=== PATIENT | female | born 1995 | race Caucasian/White ===

== ENCOUNTER 2017-05-19 00:19 | Emergency (ER) | payer OTHER ==
[~2017-05-19] VITALS: Ht 162.6 cm; Wt 67.0 kg
[~2017-05-19 00:19] MED LIST: ACET500C5 PO; ACYC800T57 PO; HYDR-3010 PO; HYDR-3498 PO; IBUP-1542 PO; NITR-58 PO; PHEN-537 PO
[2017-05-19 00:25] VITALS: Ht 162.6 cm; Wt 67.0 kg
--- NOTE | 2017-05-19 03:16 | ERD ---
ER Documentation Chief Complaint Date/Time DATE: 05/19/17 TIME: 03:13 Chief Complaint vaginal itching HPI This 21-year-old female presents to emergency department for treatment of HSV breakout patient reports that she is not on continuous medication, she did not understand that herpes simplex was a chronic condition that would need to be treated intermittently for the rest of her life. Patient states she has told her partner that she has HSV and they do use barrier method. ROS All systems reviewed and are negative except as per history of present illness. Medications Home Meds Active Scripts Ibuprofen* (Motrin*) 600 Mg Tab, 600 MG PO Q6, #20 TAB Prov:BRANDY BATRES PA-C 01/25/16 Hydroxyzine Hcl* (Hydroxyzine Hcl*) 10 Mg Tablet, 10 MG PO Q6H Y for ITCHING, # 15 TAB Prov:BRANDY BATRES PA-C 01/25/16 Acetaminophen* (Tylophen*) 500 Mg Capsule, 1 CAP PO Q4 Y for PAIN AND OR ELEVATED TEMP, #30 CAP Prov:DEVYN SOLIS PA-C 11/19/15 Ibuprofen* (Motrin*) 600 Mg Tab, 600 MG PO Q6, #30 TAB Prov:RADHA SNELL PA-C 10/29/15 Ibuprofen* (Motrin*) 600 Mg Tab, 600 MG PO Q8, #30 Prov:VERONICA CRUM DO 06/19/15 Hydrocodone Bit-Acetaminophen* ([place]*) 5-325 Mg Tab, 1 TAB PO Q6 Y for PAIN, # 15 TAB Prov:VERONICA CRUM DO 06/19/15 Phenazopyridine Hcl* (Pyridium*) 100 Mg Tab, 100 MG PO TID Y for BLADDER SPASMS , #8 TAB Prov:KAREL LORENZO 03/15/15 Nitrofurantoin Monohyd Macrocr* (Macrobid*) 100 Mg Capsr, 100 MG PO HS for 7 Days Prov:KAREL LORENZO 03/15/15 Acyclovir* (Zovirax*) 800 Mg Tablet, 400 MG PO TID for 10 Days, TAB Prov:KAREL LORENZO 03/15/15 Allergies Allergies: Coded Allergies: No Known Allergy (Unverified , 01/16/14) PMhx/Soc History of Surgery: No Anesthesia Reaction: No Hx Neurological Disorder: No Hx Respiratory Disorders: No Hx Cardiac Disorders: No Hx Psychiatric Problems: No Hx Miscellaneous Medical Probl: No Hx Alcohol Use: No Hx Substance Use: No Hx Tobacco Use: No Physical Exam Vitals Vital Signs Date Time Temp Pulse Resp B/P Pulse Ox O2 Delivery O2 Flow Rate FiO2 05/19/17 00:25 97.6 98 20 144/64 100 Vitals stable, triage notes reviewed Physical Exam Const: Well-nourished well-hydrated well-appearing no acute distress Head: Eyes: ENT: Neck: Resp: Respirations even and unlabored no respiratory distress Cardio: Pelvic Exam: Deferred Abdomen: Soft nontender nondistended Neur: Awake and alert Psych: Normal Mood and Affect Results 24 hrs Urinalysis negative Laboratory Tests Test 05/19/17 03:58 Bedside Urine pH (LAB) 7.0 Bedside Urine Protein (LAB) 1+ Bedside Urine Glucose (UA) Negative Bedside Urine Ketones (LAB) Negative Bedside Urine Blood Negative Bedside Urine Nitrite (LAB) Negative Bedside Urine Leukocyte Esterase (L Negative Urinalysis negative for evidence of infection, no leukocytosis nitrates or microscopic hematuria Procedures/MDM This pleasant 21-year-old female presents to emergency department today for treatment of herpes simplex virus 2. Patient has history of HSV, denies that she has any medication to use her that she has the understanding that the herpes could come back. Teaching provided at this point that herpes was a chronic condition that would require continuous treatment. Patient did report she has a partner the use barrier methods and she has told him that she has the virus. I have little suspicion for pyelonephritis, Bartholin's cyst, or . Patient treatment includes urinalysis; negative for evidence of infection, no leukocytosis, nitrates or microscopic hematuria, urine hCG negative for evidence of . Patient will be discharged with acyclovir, Motrin, and teaching handout instructed to follow-up with primary care educational assistant teacher for a full active treatment of HSV. Patient is stable with no new complaints during ER course, clinically there is no current evidence to suggest meningitis, sepsis, acute abdomen, acute coronary syndromes, pulmonary embolism or any other emergent condition appearing to require further evaluation or hospitalization. I feel the patient is stable for discharge at this time. I have discussed results, examination findings, the treatment plan with the patient and family present prior to discharge. Indications for emergent reevaluation, side effects of medication were also discussed. All questions were answered. Patient verbalizes understanding and agrees with plan of care. Departure Diagnosis: Primary Impression: HSV infection Condition: Good Patient Instructions: Herpes Genitalis, Hsv: Type Ii Referrals: MANUSCRIPTS CURATOR REFERRAL LIST Additional Instructions: Thank you for for coming to [facility] for your care today. Please ask your nurse or provider if you have questions about your care today and do not leave until all your questions have been answered. Please use any medications given as directed and follow-up with your doctor (or the doctor you were referred to) in the next 2-3 days. If you do not have a primary care doctor you may follow up at the [facility] (listed below). You may also use motrin and tylenol as needed for fever and/or pain unless instructed otherwise by your provider or nurse. Indications for more urgent follow-up have been discussed, but you may return to the Emergency Department at ANY time for any worrisome or worsening symptoms. If you have abdominal pain, please know that no test or exam you received is perfect and you should follow up within 8 hours for continued pain. If you had any imaging studies today, such as an X-Ray or CT Scan, these studies will be reviewed later by a radiologist. You will be called if there are important findings that were not identified today, so make sure the contact information you provided at registration is correct. If you received any narcotic pain control medicine today, such as Vicodin, Morphine or Dilaudid, your coordination and judgment may be affected for a number of hours. Please do not drive or operate heavy machinery, and you may want someone to assist you at home. If you were given a prescription for narcotic medication, be aware that it is very addictive- use sparingly and only if necessary. MILLI YADAV May 19, 2017 03:11
[2017-05-19 03:53] LABS: URINE BLOOD (Dip) POC Negative (NEGATIVE)
[2017-05-19] MEDS ORDERED: ACYC800T57 PO (04:21)
[2017-05-19] MEDS ORDERED: IBUP400T22 PO (04:21)
== END 2017-05-19 04:34 | disposition home or self-care (01) ==
LOC: FTE 00:19
DX: B00.9 Herpesviral infection, unspecified (principal)
CPT/HCPCS: 81003; Z7502; 99283

== ENCOUNTER 2017-11-14 12:51 | Emergency (ER) | END 2017-11-14 14:17 | disposition home or self-care (01) ==

== ENCOUNTER 2018-03-05 06:45 | Inpatient (IN) | END 2018-03-08 22:30 | disposition home or self-care (01) | DRG 781 ==

== ENCOUNTER 2019-02-04 15:25 | Emergency (ER) | payer OTHER ==
[~2019-02-04] VITALS: Ht 160 cm; Wt 87.5 kg
[~2019-02-04 15:25] MED LIST changes: -ACET500C5 PO; -ACYC800T57 PO; +FERR134T PO; -HYDR-3010 PO; -HYDR-3498 PO; -IBUP-1542 PO; +LABE100T7 PO; -NITR-58 PO; -PHEN-537 PO; +PREN-19 PO
[2019-02-04 15:49] VITALS: BP 133/75; PULSE 68; RESP 18; Ht 160 cm; Wt 87.5 kg
[2019-02-04] MEDS ORDERED: AMOX500C2 PO (19:47)
--- NOTE | 2019-02-04 19:55 | ERD ---
ER Documentation Chief Complaint Chief Complaint lump at site since yesterday ( 9 months ago) HPI 23-year-old female with no reported past medical surgical history, status post 9 months ago who presents with complaint of pain, swelling, erythema at site of scar. Patient states this began yesterday when she noticed a bump along scar. Has had pain, redness at the site. She otherwise denies fever, chills, nausea, abdominal pain, vomiting, diarrhea, urinary symptoms such as burning or itching, frequency. She has not seen her ACTIVITIES COUNSELOR for this issue. She currently is on Depo shot for prevention. She otherwise is without complaint. States she has not shaved pubic area and has had growth of hair long scar. She denies any allergies to medications. ROS All systems reviewed and are negative except as per history of present illness. Medications Home Meds Active Scripts Amoxicillin* (Amoxicillin*) 500 Mg Cap, 500 MG PO TID for 7 Days, CAP Prov:EMILY SHOEMAKER PA-C 02/04/19 Reported Medications Labetalol Hcl* (Labetalol Hcl*) 100 Mg Tablet, 100 MG PO Q8, TAB 03/08/18 Ferrous Sulfate (Iron) 134 Mg Tablet, 134 MG PO DAILY, TAB 03/05/18 Vit #76/Iron,Carb/FA (Prenatabs Rx Tablet) 1 Each Tablet, 1 EACH PO DAILY, TAB 03/05/18 Allergies Allergies: Coded Allergies: No Known Allergy (Unverified , 03/05/18) PMhx/Soc Medical and Surgical Hx: pt denies Surgical Hx History of Surgery: No () Anesthesia Reaction: No Hx Neurological Disorder: No Hx Respiratory Disorders: No Hx Cardiac Disorders: No Hx Psychiatric Problems: No Hx Miscellaneous Medical Probl: No Hx Alcohol Use: No Hx Substance Use: No Hx Tobacco Use: No Smoking Status: Never smoker Physical Exam Vitals Vital Signs Date Temp Pulse Resp B/P (MAP) Pulse Ox O2 O2 Flow FiO2 Time Delivery Rate 02/04/19 98.4 68 18 133/75 99 15:49 (94) Physical Exam Const: No acute distress Head: Atraumatic Eyes: Normal Conjunctiva ENT: Normal External Ears, Nose and Mouth. Neck: Full range of motion. No meningismus. Resp: Clear to auscultation bilaterally Cardio: Regular rate and rhythm, no murmurs Abd: Soft, non tender, non distended. Normal bowel sounds Skin: Has healed scar, central to that scar small painful, erythematous nodule that is fluctuant and tender to touch. Area with pubic ears with several hairs growing into the area of raised skin and tenderness. Small needle prick made area and 3 pubic hairs removed Back: No midline or flank tenderness Ext: No cyanosis, or edema Neur: Awake and alert Psych: Normal Mood and Affect Results 24 hrs Laboratory Tests Test 02/04/19 19:26 02/04/19 19:29 Urine Color YELLOW Urine Clarity SLIGHTLY CLOUDY Urine pH 7.0 Urine Specific [place] 1.016 Urine Ketones NEGATIVE mg/dL Urine Nitrite NEGATIVE mg/dL Urine Bilirubin NEGATIVE mg/dL Urine Urobilinogen NEGATIVE mg/dL Urine Leukocyte Esterase NEGATIVE Nehemiah/ul Urine Microscopic RBC 1 /HPF Urine Microscopic WBC 1 /HPF Urine Squamous Epithelial Cells FEW /HPF Urine Mucus FEW /HPF Urine Hemoglobin NEGATIVE mg/dL Urine Glucose NEGATIVE mg/dL Urine Total Protein 2+ mg/dl POC Beta HCG, Qualitative NEGATIVE Procedures/MDM 23-year-old female presents with with area of redness and tenderness along he aled scar. Symptoms likely secondary to ingrown hairs. Multiple hairs removed and small needle incision made at site. No discharge noted. Patient with movement and pain. Will discharge with strict return precautions and short course of amoxicillin antibiotic given surrounding cellulitis. This should aid in preventing evolving infection to site. I have low suspicion for any intra-abdominal process warranting further emergent work-up or care. Abdominal exam is reassuring other than noted. DISPOSITION PLAN: We discussed follow up with the patient's primary care doctor within 24 to 48 hours. Patient counseled regarding my diagnostic impression and care plan. Prior to discharge all questions answered. Pt agrees with treatment plan and understan ds strict return precautions. Precautionary instructions provided including instructions to return to the ER if not improving or for any worsening or changing symptoms or concerns. Disclaimer: Inadvertent spelling and grammatical errors are likely due to EHR/dictation software use and do not reflect on the overall quality of patient care. Also, please note that the electronic time recorded on this note does not necessarily reflect the actual time of the patient encounter. Departure Diagnosis: Primary Impression: Cellulitis Additional Impression: Ingrown hair Condition: Stable Patient Instructions: Cellulitis Additional Instructions: Call your primary care doctor TOMORROW for an appointment during the next 2-3 days.See the doctor sooner or return here if your condition worsens before your appointment time. EMILY SHOEMAKER PA-C February 04, 2019 19:55
== END 2019-02-04 20:04 | disposition home or self-care (01) ==
LOC: FTE 15:25
DX: L03.311 Cellulitis of abdominal wall (principal); L73.1 Pseudofolliculitis barbae
CPT/HCPCS: 81001; 81025; Z7502; 99283

== ENCOUNTER 2019-02-22 11:20 | Emergency (ER) | payer OTHER ==
[~2019-02-22] VITALS: Ht 160 cm; Wt 88.1 kg
[~2019-02-22 11:20] MED LIST changes: +AMOX500C2 PO
[2019-02-22 11:30] VITALS: BP 110/65; PULSE 91; RESP 18; Ht 160 cm; Wt 88.1 kg
[2019-02-22] MEDS ORDERED: ONDANSETRON 4 MG INJ IV STA (13:06)
[2019-02-22] MEDS ORDERED: ONDANSETRON (ODT) 4 MG TAB ODT STA (13:42)
[2019-02-22] MEDS ORDERED: IBUPROFEN 600 MG TAB PO ONE (14:00)
[2019-02-22] MEDS ORDERED: IBUP-1542 PO (15:35)
[2019-02-22] MEDS ORDERED: DOCU-144 PO (15:35)
[2019-02-22] MEDS ORDERED: ONDA8TAB14 PO (15:40)
--- NOTE | 2019-02-22 15:42 | ERD ---
ER Documentation Chief Complaint Chief Complaint abdominal pain with nausea since th HPI 23 female presents with lower abdominal presents yesterday. She has nausea without vomiting. She has urinary complaints. She has cough, shortness of breath or chest pain. She is requesting a test that she does not remember her last menstrual period although she did have a tubal ligation 11 months ago. ROS All systems reviewed and are negative except as per history of present illness. Medications Home Meds Active Scripts Ondansetron (Ondansetron Odt) 8 Mg Tab.rapdis, 8 MG PO Q6H PRN for NAUSEA AND/OR VOMITING, #8 TAB Prov:HELLEN CHANEL MD 02/22/19 Docusate Sodium* (Colace*) 100 Mg Capsule, 100 MG PO BID, #15 CAP Prov:HELLEN CHANEL MD 02/22/19 Ibuprofen* (Motrin*) 600 Mg Tab, 600 MG PO Q6, #20 TAB Prov:HELLEN CHANEL MD 02/22/19 Amoxicillin* (Amoxicillin*) 500 Mg Cap, 500 MG PO TID for 7 Days, CAP Prov:EMILY SHOEMAKER PA-C 02/04/19 Reported Medications Labetalol Hcl* (Labetalol Hcl*) 100 Mg Tablet, 100 MG PO Q8, TAB 03/08/18 Ferrous Sulfate (Iron) 134 Mg Tablet, 134 MG PO DAILY, TAB 03/05/18 Vit #76/Iron,Carb/FA (Prenatabs Rx Tablet) 1 Each Tablet, 1 EACH PO DAILY, TAB 03/05/18 Allergies Allergies: Coded Allergies: No Known Allergy (Unverified , 03/05/18) PMhx/Soc History of Surgery: No () Anesthesia Reaction: No Hx Neurological Disorder: No Hx Respiratory Disorders: No Hx Cardiac Disorders: No Hx Psychiatric Problems: No Hx Miscellaneous Medical Probl: No Hx Alcohol Use: No Hx Substance Use: No Hx Tobacco Use: No FmHx Family History: No diabetes, No coronary disease, No other Physical Exam Vitals Vital Signs Date Temp Pulse Resp B/P (MAP) Pulse Ox O2 O2 Flow FiO2 Time Delivery Rate 02/22/19 98.8 91 18 110/65 98 11:30 (80) Physical Exam Const: No acute distress Head: Atraumatic Eyes: Normal Conjunctiva ENT: Normal External Ears, Nose and Mouth. Neck: Full range of motion. No meningismus. Resp: Clear to auscultation bilaterally Cardio: Regular rate and rhythm, no murmurs Abd: Soft, normal lower abdominal tenderness. No tenderness at McBurney's point no Zayas sign and no masses. Non distended. Normal bowel sounds Skin: No petechiae or rashes Back: No midline or flank tenderness Ext: No cyanosis, or edema Neur: Awake and alert Psych: Normal Mood and Affect Result Diagram: 02/22/19 1348 02/22/19 1348 Results 24 hrs Laboratory Tests Test 02/22/19 13:46 02/22/19 13:47 02/22/19 13:48 POC Beta HCG, Qualitative NEGATIVE Bedside Urine pH (LAB) 7.0 Bedside Urine Protein (LAB) 3+ Bedside Urine Glucose (UA) Negative Bedside Urine Ketones (LAB) Negative Bedside Urine Blood Trace-intact Bedside Urine Nitrite (LAB) Negative Bedside Urine Leukocyte Esterase Negative (L White Blood Count 7.4 10^3/ul Red Blood Count 4.91 10^6/ul Hemoglobin 10.9 g/dl Hematocrit 35.7 % Mean Corpuscular Volume 72.7 fl Mean Corpuscular Hemoglobin 22.2 pg Mean Corpuscular 30.5 g/dl Hemoglobin Concent Red Cell Distribution Width 17.2 % Platelet Count 333 10^3/UL Mean Platelet Volume 9.1 fl Immature Granulocytes % 0.500 % Neutrophils % 60.8 % Lymphocytes % 27.3 % Monocytes % 9.8 % Eosinophils % 1.3 % Basophils % 0.3 % Nucleated Red Blood Cells % 0.0 /100WBC Immature Granulocytes # 0.040 10^3/ul Neutrophils # 4.5 10^3/ul Lymphocytes # 2.0 10^3/ul Monocytes # 0.7 10^3/ul Eosinophils # 0.1 10^3/ul Basophils # 0.0 10^3/ul Nucleated Red Blood Cells # 0.0 10^3/ul Urine Color YELLOW Urine Clarity SLIGHTLY CLOUDY Urine pH 6.0 Urine Specific [place] 1.015 Urine Ketones NEGATIVE mg/dL Urine Nitrite NEGATIVE mg/dL Urine Bilirubin NEGATIVE mg/dL Urine Urobilinogen NEGATIVE mg/dL Urine Leukocyte Esterase NEGATIVE Nehemiah/ul Urine Microscopic RBC 1 /HPF Urine Microscopic WBC 2 /HPF Urine Squamous Epithelial Cells FEW /HPF Urine Hemoglobin NEGATIVE mg/dL Urine Glucose NEGATIVE mg/dL Urine Total Protein 2+ mg/dl Sodium Level 140 mmol/L Potassium Level 3.5 mmol/L Chloride Level 106 mmol/L Carbon Dioxide Level 23 mmol/L Anion Gap 11 Blood Urea Nitrogen 6 mg/dl Creatinine 0.61 mg/dl Est Glomerular Filtrat > 60 mL/min Rate mL/min Glucose Level 83 mg/dl Calcium Level 9.1 mg/dl Total Bilirubin 0.9 mg/dl Direct Bilirubin 0.00 mg/dl Indirect Bilirubin 0.9 mg/dl Aspartate Amino Transf (AST/SGOT) 29 IU/L Alanine 31 IU/L Aminotransferase (ALT/SGPT) Alkaline Phosphatase 84 IU/L Total Protein 7.8 g/dl Albumin 4.4 g/dl Globulin 3.40 g/dl Albumin/Globulin Ratio 1.29 Lipase 76 U/L Current Medications Medications Dose Sig/Caitlin Start Time Status Last (Trade) Ordered Route PRN Stop Time Admin Dose Reason Admin Ondansetron 4 mg ONCE STAT 02/22/19 DC HCl (Zofran IV 13:06 Inj) 02/22/19 13:43 Ondansetron 8 mg ONCE STAT 02/22/19 DC 02/22/19 HCl (Zofran ODT 13:42 13:52 Odt) 02/22/19 13:43 Ibuprofen 600 mg ONCE ONCE 02/22/19 DC 02/22/19 (Motrin) PO 14:00 13:52 02/22/19 14:01 Procedures/MDM CBC shows no leukocytosis. There is minimal anemia. CMP and lipase normal. Urine shows no significant acute abnormalities. Patient given Tylenol and Zofran. CT abdomen pelvis shows no acute abnormalities. Patient had improved p ain and minimal tenderness on serial exam. Patient shows no signs of appendicitis, complications of , signs of ovarian torsion, surgical abdomen, additional concerning signs or symptoms. We will treat with Colace, ibuprofen, Zofran, further observation at home and return precautions. The patient was stable with no new complaints during the ER course. Clinically, there is no current evidence to suggest meningitis, sepsis, acute abdomen, pneumonia, stroke, acute coronary syndrome, pulmonary embolism, aortic dissection or any other emergent condition appearing to require further eval uation or hospitalization. Patient counseled regarding my diagnostic impression and care plan. Prior to discharge all questions answered. Pt agrees with treatment plan and understands strict return precautions. Pt is instructed to follow up with primary care provider within 24-48 hours. Precautionary instructions provided including instructions to return to the ER if not improving or for any worsening or changing symptoms or concerns. Disclaimer: Inadvertent spelling and grammatical errors are likely due to EHR/dictation software use and do not reflect on the overall quality of patient care. Also, please note that the electronic time recorded on this note does not necessarily reflect the actual time of the patient encounter. Departure Diagnosis: Primary Impression: Abdominal pain Abdominal location: lower abdomen, unspecified Qualified Codes: R10.30 - Lower abdominal pain, unspecified Condition: Stable Patient Instructions: Abdominal Pain Referrals: SCOTT KENNEDY MD (PCP) Additional Instructions: All examinations normal today. Uncertain cause of symptoms. Recheck for new worsening symptoms with primary doctor. Drink plenty fluids at home. HELLEN CHANEL MD February 22, 2019 15:42
== END 2019-02-22 16:17 | disposition home or self-care (01) ==
LOC: FTE 11:20
DX: R10.30 Lower abdominal pain, unspecified (principal); R11.0 Nausea; R10.2 Pelvic and perineal pain
CPT/HCPCS: 36415; 74176; 80053; 81001; 81025; 83690; 85025; Z7502; Z7610; 81003

== ENCOUNTER 2019-07-22 11:19 | Emergency (ER) | payer OTHER ==
[~2019-07-22] VITALS: Ht 160 cm; Wt 87.5 kg
[~2019-07-22 11:19] MED LIST changes: +DOCU-144 PO; +IBUP-1542 PO; +IBUP800T48 PO; +ONDA8TAB14 PO
[2019-07-22 11:21] VITALS: BP 139/76; PULSE 73; RESP 18; Ht 160 cm; Wt 87.5 kg
== END 2019-07-22 14:21 | disposition home or self-care (01) ==
LOC: FTE 11:19
DX: R10.30 Lower abdominal pain, unspecified (principal)
CPT/HCPCS: 36415; 80053; 81001; 81025; 83690; 85025; 99283